=== PATIENT | male | born 2000 | race Caucasian/White ===

== ENCOUNTER 2020-04-19 20:14 | Emergency (ER) | payer OTHER ==
[~2020-04-19] VITALS: Ht 188 cm; Wt 77.1 kg
[~2020-04-19 20:14] MED LIST: CODACE30 PO
== END 2020-04-19 21:53 | disposition home or self-care (01) ==
LOC: ER 20:14
DX: S50.02XA Contusion of left elbow, initial encounter (principal); F17.200 Nicotine dependence, unspecified, uncomplicated; W11.XXXA Fall on and from ladder, initial encounter
CPT/HCPCS: 73080; 99283-25; A9270